=== PATIENT | male | born 1975 | race Caucasian/White ===

== ENCOUNTER 2023-01-10 11:45 | Day surgery (SDC) | payer OTHER ==
[2023-01-05 11:01] LABS: Potassium 3.9 mEq/L (3.5-5.1)
--- NOTE | 2023-01-05 16:49 | EKG ---
Test Date: 2023-01-05 Test Time: 11:29:11 Spinner Box: CECILIA MEASUREMENT RESULTS: Intervals: Rate: 79 MD: 128 QRSD: 86 QT: 372 QTc: 426 [place]: P: 65 MD: 128 QRS: 81 T: 32 INTERPRETIVE STATEMENTS: Normal sinus rhythm Normal ECG No previous ECG available for comparison Electronically Signed On 01-05-23 16:48:41 [employer]ATER TRAIN[employer] by Kingsley Fontana
[2023-01-10] MEDS ORDERED: CEFAZOLIN SODIUM 2 GM/VIAL ONE (12:11)
[2023-01-10] MEDS ORDERED: Ringers Lactate 1,000 ML IV ONE (12:11)
[2023-01-10] MEDS ORDERED: BUPIVACAINE 0.25% PF 30 ML VIAL ONE (12:38)
[2023-01-10] MEDS ORDERED: ONDANSETRON 4 MG/2 ML VIAL ONE ×2 (13:11→15:36)
[2023-01-10] MEDS ORDERED: FENTANYL CITR 100 MCG/2 ML ONE (13:11)
[2023-01-10] MEDS ORDERED: propofoL 200 MG/20 ML VIAL IV ONE (13:11)
[2023-01-10] MEDS ORDERED: LIDOCAINE 2% MPF 5 ML VIAL ONE (13:11)
[2023-01-10] MEDS ORDERED: MIDAZOLAM HCL 2 MG/2 ML INJ ONE (13:14)
[2023-01-10] MEDS ORDERED: GLYCOPYRROLATE 0.2 MG/ML SYR ONE ×2 (13:14→14:35)
[2023-01-10] MEDS ORDERED: ROCURONIUM 50 MG/5 ML VIAL IV ONE (13:14)
[2023-01-10] MEDS ORDERED: KETOROLAC 30 MG/ML INJ ONE (13:23)
[2023-01-10] MEDS ORDERED: dexAMETHasone 10 MG/ML VIAL ONE (13:24)
--- NOTE | 2023-01-10 14:19 | P.OP ---
Preoperative diagnosis: Umbilical Hernia Postoperative diagnosis: Umbilical Hernia Primary procedure: Laparoscopic Umbilical Hernia Repair with mesh Anesthesia: GETA + Local Estimated blood loss: <5cc Specimen: Hernia Contents Findings: ~ 2cm umbilical hernia with adipose Complications: None Implants: Bard Ventralite ST 11.4 round mesh, sorbafix x 45 tacks Transferred to: Recovery Room Condition: Good
[2023-01-10] MEDS ORDERED: NEOSTIGMINE 1 MG/ML -10 ML VIAL ONE (14:41)
[2023-01-10] MEDS: HYDROMORPHONE HCL 1 MG/ML INJ ONE ×4 (14:59→15:16)
[2023-01-10 15:08] VITALS: TEMP 97
[2023-01-10] MEDS ORDERED: HYDROMORPHONE HCL 1 MG/ML INJ ONE (15:33)
[2023-01-10] MEDS ORDERED: PROMETHAZINE INJ 25 MG/ML AMP ONE (15:36)
[2023-01-10 16:55] VITALS: BP 124/88; O2SAT 94
--- NOTE | 2023-01-10 19:37 | OP ---
Date of Procedure: 01/10/2023 Surgeon: Nolan Adams MD, Preoperative Diagnosis: Umbilical hernia. Postoperative Diagnosis: Umbilical hernia. Procedure Performed: Laparoscopic umbilical hernia repair with mesh. Anesthesia: General endotracheal plus local with 0.25% Marcaine. Estimated Blood Loss: Less than 5 cc. Specimen: Hernia contents. Findings: 2 cm umbilical hernia with adipose tissue. Complications: None. Implants: Bard Ventralight ST mesh with Echo Positioning System, 11.4 cm round mesh utilized, SorbaF ix absorbable fixation tacks, 45 tacks utilized. Disposition: The patient was transferred to the recovery room in good condition. Procedure In Detail: After informed consent was obtained, the patient was brought to the operating r oom, prepped and draped in the usual sterile fashion. After adequate anesthesia was achieved, I anes thetized an area of the left upper quadrant down to subcutaneous tissues. A 5 mm 0-degree optical tr ocar was introduced in the abdomen without any evidence of complication. Insufflation was obtained t o 15 mmHg at this time. There was no injury to vital structure in the abdomen. Additional trocar wa s placed in the left lower quadrant. This was similarly anesthetized, sharply incised. A 12 mm troc ar was placed under direct vision without evidence of complication in the left lower quadrant. I the n proceeded to use the LigaSure device to take the preperitoneal fat out of the umbilical hernia defe ct which was incarcerated/strangulated at this point. I removed it in its entirety including strippi ng back some of the preperitoneal fat from the landing zone for the hernia mesh. After this, the linda pose tissue was removed and the hernia contents were removed. It was placed in EndoCatch bag, remove d through lateral trocar, and sent off for pathologic examination. At this point, appropriate adelina g zone was appreciated. I then appreciated that the defect was approximately 2 cm in size. We used an EndoStitch with an 0 V-Loc suture was then used to close the common defect, imbricating the hernia sac in a running fashion with good approximation of tissues. I then proceeded to deploy the 11.4 cm Bard Ventralight mesh in the central position at the supraumbilical position. After deploying the m esh in the central position of the defect, I then secured it to the anterior abdominal wall using abs orbable fixation tacks and removed the balloon deployment system and found it to be intact on the marlen k table. At this point, I placed a total of 45 tacks to the anterior abdominal wall, securing the me sh with good approximation of tissues with good apposition of the mesh and there was only minimal blo od loss from one of the tacks in the left lower quadrant with simple pressure and I was able to stop. At the end of the procedure, I examined the area. There was no bleeding further and no hemostatic measures required. I placed 3 additional tacks in the area and no additional bleeding was appreciate d at the end of the procedure at this point. The 12 mm trocar site was then closed using a Dileep- omason suture passer with 0 Vicryl in an interrupted fashion with good approximation of tissues. The abdomen was completely desufflated under direct vision without evidence of complication. All skin i ncisions were then copiously irrigated and closed with a 4-0 Monocryl in a running fashion. Dermabon d was placed over top. The patient tolerated the procedure well without evidence of complication and was transferred to PACU in good condition. All counts were correct at the end of the case. ASHLEY/NEGARL Voice ID: [id number] Report ID: [id number]
== END 2023-01-10 16:50 | disposition home or self-care (01) ==
LOC: OR 11:45
PROVIDERS: ATTEND Surgery
PROC: 0WUF4JZ Supplement Abdominal Wall with Synthetic Substitute, Percutaneous Endoscopic Approach (ICD-10-PCS; principal; 2023-01-10 14:30)
DX: K42.9 Umbilical hernia without obstruction or gangrene (principal)
CPT/HCPCS: 93005; 80048; 36415; 88302; 49591; J2550; J2704; J2710; J2001; J2250; J3010; J1100; J1170 ×2; J2405 ×2; J7120; C1781

== ENCOUNTER 2023-08-12 07:24 | Day surgery (SDC) | payer OTHER ==
[2023-08-10 14:07] LABS: Anion Gap 8.4 mEq/L (5.0-15.0); Potassium 3.4 mEq/L (3.5-5.1)
--- NOTE | 2023-08-11 14:09 | EKG ---
Test Date: 2023-08-10 Test Time: 13:39:02 Hostel Parent: MEREDITH MEASUREMENT RESULTS: Intervals: Rate: 80 VA: 140 QRSD: 80 QT: 390 QTc: 449 [place]: P: 70 VA: 140 QRS: 85 T: 67 INTERPRETIVE STATEMENTS: Normal sinus rhythm Normal ECG Compared to ECG 01/05/2023 11:29:11 No significant changes Electronically Signed On 08-11-23 14:07:10 CDT by Kingsley Fontana
[2023-08-12] MEDS ORDERED: Ringers Lactate 1,000 ML IV ONE (07:41)
[2023-08-12] MEDS ORDERED: LIDOCAINE 1% MPF 5 ML VIAL ONE (08:21)
[2023-08-12] MEDS ORDERED: propofoL 200 MG/20 ML VIAL IV ONE (08:22)
[2023-08-12 09:58] VITALS: BP 11/68; TEMP 97.6; O2SAT 100
== END 2023-08-12 09:40 | disposition home or self-care (01) ==
LOC: OR 07:24
PROVIDERS: ATTEND Surgery
PROC: 0DBN8ZX Excision of Sigmoid Colon, Via Natural or Artificial Opening Endoscopic, Diagnostic (ICD-10-PCS; 2023-08-12)
PROC: 0DBH8ZX Excision of Cecum, Via Natural or Artificial Opening Endoscopic, Diagnostic (ICD-10-PCS; 2023-08-12)
PROC: 0DBK8ZX Excision of Ascending Colon, Via Natural or Artificial Opening Endoscopic, Diagnostic (ICD-10-PCS; principal; 2023-08-12 08:30)
DX: Z12.11 Encounter for screening for malignant neoplasm of colon (principal); D12.5 Benign neoplasm of sigmoid colon
CPT/HCPCS: 93005 ×2; 80048; 36415; 88305; 45385; J2704; J2001; J7120